=== PATIENT | male | born 1960 | race Caucasian/White ===

== ENCOUNTER 2018-11-16 11:28 | Emergency (ER) | payer OTHER ==
[~2018-11-16] VITALS: Ht 172.7 cm; Wt 101.7 kg
--- OUTSIDE RECORDS SUMMARY | 2018-11-16 11:31 | XMS REPORT | Clinical Summary ---
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 01/22/2019 Active ezetimibe (ZETIA) 10 mg Take 1 tablet 30 tablet 11 tabletIndications: Other (10 mg total) 8 hyperlipidemia, Coronary by mouth artery disease involving daily. douglas coronary artery of douglas heart without angina pectoris Active atorvastatin (LIPITOR) 80 TAKE 1 TABLET 30 tablet 0 MG tablet BY MOUTH 8 EVERY DAY AT NIGHT Active atorvastatin (LIPITOR) 80 Take 1 tablet 90 tablet 3 MG tablet (80 mg total) 8 by mouth nightly. 01/29/2018 Discontinued aspirin 325 MG tablet Take 325 mg 0 by mouth daily. 01/12/2018 Discontinued (Reorder) atorvastatin (LIPITOR) 80 Take 80 mg by 0 MG tablet mouth nightly. 01/22/2018 Discontinued benadryl/lidocaine/maalox Swish and 90 mL 0 (MAGIC MOUTHWASH) 1:1:1 spit 5 mL 8 suspension every 6 (six) suspensionIndications: hours as Skin eruption needed (pain). 01/29/2018 Discontinued metoprolol tartrate Take 1 tablet 180 tablet 4 (LOPRESSOR) 25 mg tablet (25 mg total) 8 by mouth 2 (two) times a day. 02/07/2018 Discontinued (Reorder) atorvastatin (LIPITOR) 80 Take 1 tablet 30 tablet 0 MG tablet (80 mg total) 8 by mouth nightly. 02/14/2018 Discontinued (Reorder) atorvastatin (LIPITOR) 80 Take 1 tablet 90 tablet 3 02/07/201 MG tablet (80 mg total) 8 by mouth nightly. Active Problems Problem Noted Date Coronary artery disease 06/08/2017 Hypertension 06/08/2017 Right upper quadrant pain 10/19/2015 Encounters Care Team Description Date Type Specialty Sanford Laws MD Med Refill 02/14/2018 Refill Cardiology Rosy Muñoz MA Med Refill 02/07/2018 Refill Cardiology Sanford Laws MD Hyperlipidemia, unspecified hyperlipidemia type (Primary Dx) 01/29/2018 Orders Only Cardiology Rosy Muñoz MA Lipid Panel 01/29/2018 Telephone Cardiology Sanford Laws MD Other hyperlipidemia (Primary Dx); Coronary artery disease involving douglas coronary artery of douglas heart without angina pectoris; Benign essential HTN 01/22/2018 Office Visit Cardiology Sanford Laws MD Hyperlipidemia, unspecified hyperlipidemia type 01/18/2018 Lab Lab Shannan Serra MA Hyperlipidemia, unspecified hyperlipidemia type (Primary Dx) 01/15/2018 Orders Only Cardiology Rosy Muñoz MA Med Refill 01/12/2018 Telephone Cardiology Rosy Muñoz MA Med Refill 01/12/2018 Refill Cardiology after 11/15/2017 Social History Date Tobacco Use Types Packs/Day Years Used Never Smoker Smokeless Tobacco: Never Used Drinks/Week oz/Week Comments Alcohol Use occasional Yes Sex Assigned at Date Recorded Not on file Industry Job Start Date Occupation Not on file Not on file Not on file Travel End Travel History Travel Start No recent travel history available. Last Filed Vital Signs Reading Time Taken Comments Vital Sign 139/85 01/22/2018 8:36 AM [facility] Blood Pressure 66 01/22/2018 8:36 AM [facility] Pulse - - Temperature 16 01/22/2018 8:36 AM [facility] Respiratory Rate - - Oxygen Saturation - - Inhaled Oxygen Concentration 98.4 kg (217 lb) 01/22/2018 8:36 AM [facility] Weight 172.7 cm (5' 8") 01/22/2018 8:36 AM [facility] Height 32.99 01/22/2018 8:36 AM [facility] Body Mass Index Plan of Treatment Health Maintenance Due Date Last Done Comments COLONOSCOPY SCREENING 2010 SHINGLES VACCINES (#1) 2010 INFLUENZA VACCINE 10/18/2018 Procedures Comments Procedure Name Priority Date/Time Associated Diagnosis ECG 12-LEAD Routine 01/22/2018 Other hyperlipidemia 8:40 AM [facility] Coronary artery disease involving douglas coronary artery of douglas heart without angina pectoris ESTIMATED GFR Routine 01/18/2018 10:51 AM CDT LIPID PANEL Routine 01/18/2018 Hyperlipidemia, 10:51 AM CDT unspecified hyperlipidemia type COMPREHENSIVE METABOLIC Routine 01/18/2018 Hyperlipidemia, PANEL 10:51 AM CDT unspecified hyperlipidemia type after 11/15/2017 Results * ECG 12 lead (01/22/2018 8:40 AM [facility]) Ventricular 64 [facility] rate Atrial rate 64 [facility] UT interval 172 [facility] QRSD interval 78 [facility] QT interval 382 [facility] QTC interval 394 [facility] P axis 1 55 [facility] QRS axis 1 43 [facility] T wave axis 0 HM MUSE EKG impression Normal sinus rhythm-Normal [facility] MUSE ECG- Specimen Performing Organization Address City/[facility]/Zipcode Phone Number [facility] [address] [place] [address] * Estimated GFR (01/18/2018 10:51 AM CDT) Pathologist [facility] Estimated GFR 68 mL/min/1.73 m2 [facility] DEPARTMENT Comment: OF PATHOLOGY CatergoryUnitsInte AND GENOMIC rpretation MEDICINE G1 >=90 Normal or high G2 60-89Mildly decreased [id number] Mildly to moderately decreased [id number] Moderately to severely decreased G4 15-29Severely decreased G5 <15Kidney failure The eGFR was calculated using the Chronic Kidney Disease Epidemiology Collaboration (CKD-EPI) equation. Interpretation is based on recommendations of the National Kidney Foundation-Kidney Disease Outcomes Quality Initiative (NKF-KDOQI) published in 2014. Specimen Plasma specimen Performing Organization Address City/State/Zipcode Phone Number [facility] DEPARTMENT OF [address] [place] [address] PATHOLOGY AND GENOMIC MEDICINE * Lipid panel (01/18/2018 10:51 AM CDT) Cholesterol 185 <200 mg/dL [facility] DEPARTMENT OF PATHOLOGY AND GENOMIC MEDICINE Triglycerides 245 (H) <150 mg/dL [facility] DEPARTMENT OF PATHOLOGY AND GENOMIC MEDICINE HDL cholesterol 42 >40 mg/dL [facility] DEPARTMENT OF PATHOLOGY AND GENOMIC MEDICINE LDL cholesterol 122 (H)Comment: Result <100 mg/dL [facility] DEPARTMENT obtained by direct LDL OF PATHOLOGY measurement AND GENOMIC MEDICINE Lipid panel SeeBelow [facility] DEPARTMENT interpretation Comment: OF PATHOLOGY Total Cholesterol AND GENOMIC (mg/dL) MEDICINE <200 Desirable 200-239Borderline -high >=240High Triglycerides (mg/dL) <150 Normal 150-199Borderline -high 200-499High >=500Very high HDL Cholesterol (mg/dL) <40Low (male) <40Low (female) LDL Cholesterol (mg/dL) <100 Optimal 100-129Near or above optimal 130-159Borderline -high 160-189High >=190Very high Risk Catergories that modify LDL goals. Risk Catergories LDL goal (mg/dL) CHD and CHD risk equivalent<100 (10-year risk >20%) Multiple (2+) risk factors <130 (10-year risk=<20%) 0-1 risk factors <160 (<10-year risk) Defining levels of lipids in metabolic syndrome Triglycerides >=150 mg/dL HDL Cholesterol Men <40 mg/dL Women <40 mg/dL Non-HDL cholesterol is a second target for therapy in persons with high triglycerides (>=200 mg/dL) Specimen Plasma specimen Performing Organization Address City/State/Zipcode Phone Number [facility] DEPARTMENT OF [address] [place] [address] PATHOLOGY AND GENOMIC MEDICINE * Comprehensive metabolic panel (01/18/2018 10:51 AM CDT) Sodium 144 135 - 148 mEq/L [facility] DEPARTMENT OF PATHOLOGY AND GENOMIC MEDICINE Potassium 5.0 3.5 - 5.0 mEq/L [facility] DEPARTMENT OF PATHOLOGY AND GENOMIC MEDICINE Chloride 106 98 - 112 mEq/L [facility] DEPARTMENT OF PATHOLOGY AND GENOMIC MEDICINE CO2 27 24 - 31 mEq/L [facility] DEPARTMENT OF PATHOLOGY AND GENOMIC MEDICINE Anion gap 11@ANIO 7 - 15 mEq/L [facility] DEPARTMENT OF PATHOLOGY AND GENOMIC MEDICINE BUN 18 6 - 20 mg/dL [facility] DEPARTMENT OF PATHOLOGY AND GENOMIC MEDICINE Creatinine 1.18 0.70 - 1.20 mg/dL [facility] DEPARTMENT OF PATHOLOGY AND GENOMIC MEDICINE Glucose 91 65 - 99 mg/dL [facility] DEPARTMENT OF PATHOLOGY AND GENOMIC MEDICINE Calcium 9.9 8.3 - 10.2 mg/dL [facility] DEPARTMENT OF PATHOLOGY AND GENOMIC MEDICINE Protein 6.6 6.3 - 8.3 g/dL [facility] DEPARTMENT Comment: OF PATHOLOGY AND GENOMIC 4.6-7.0 g/dL MEDICINE 1 week 4.4-7.6 g/dL 7 months-1year 5.1-7.3 g/dL 1-2 years5.6-7 .5 g/dL >3 years6.0-8 .0 g/dL 18-150 6.3-8.3 g/dL Albumin 3.7 3.5 - 5.0 g/dL [facility] DEPARTMENT OF PATHOLOGY AND GENOMIC MEDICINE A/G ratio 1.3 0.7 - 3.8 [facility] DEPARTMENT OF PATHOLOGY AND GENOMIC MEDICINE Alkaline 73 40 - 129 U/L [facility] DEPARTMENT phosphatase OF PATHOLOGY AND GENOMIC MEDICINE AST 26 10 - 50 U/L [facility] DEPARTMENT OF PATHOLOGY AND GENOMIC MEDICINE ALT 31 5 - 50 U/L [facility] DEPARTMENT OF PATHOLOGY AND GENOMIC MEDICINE Total bilirubin <0.2 0.0 - 1.2 mg/dL [facility] DEPARTMENT OF PATHOLOGY AND GENOMIC MEDICINE Specimen Plasma specimen Performing Organization Address City/State/Zipcode Phone Number [facility] DEPARTMENT 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
[2018-11-16 15:22] VITALS: BP 138/68
== END 2018-11-16 12:37 | disposition home or self-care (01) ==
LOC: FSED 11:28
DX: R21 Rash and other nonspecific skin eruption (principal); I10 Essential (primary) hypertension
CPT/HCPCS: 80053; 85025; 99283